=== PATIENT | female | born 1950 | race Caucasian/White ===

== ENCOUNTER 2018-04-26 13:22 | Outpatient (CLI) | payer MEDICARE, OTHER | END 2018-04-26 13:23 | disposition home or self-care (01) | LOC: SC 13:22 | PROVIDERS: ATTEND Nurse Practitioner Family | DX: G47.33 Obstructive sleep apnea (adult) (pediatric) (principal) | CPT/HCPCS: 99215; G0463; 99212 ==

== ENCOUNTER 2018-05-31 13:53 | Outpatient (CLI) | payer MEDICARE, OTHER | END 2018-05-31 13:54 | disposition home or self-care (01) | LOC: SC 13:53 | PROVIDERS: ATTEND Nurse Practitioner Family | DX: G47.33 Obstructive sleep apnea (adult) (pediatric) (principal) | CPT/HCPCS: 99214; G0463; 99212 ==

== ENCOUNTER 2022-05-14 14:25 | Outpatient (CLI) | payer MEDICARE, OTHER ==
--- NOTE | 2022-05-14 16:50 | XRAY Report ---
PROCEDURE: Knee 3 View BILAT INDICATIONS: KNEE XRAY TECHNIQUE: 3 views of the both knee(s) were acquired. COMPARISON: None. FINDINGS: Bones: No fractures or dislocations. No suspicious bony lesions. There is moderate to severe osteoarthritic type degenerative change involving both knees with the med ial and patellofemoral compartments most severely affected. Soft tissues: There are small to moderate-sized bilateral knee joint effusions. No suspicious soft t issue calcifications. IMPRESSION: 1. Moderate to severe tricompartmental osteoarthritic type degenerative change involving both knees w ith the medial and patellofemoral joints most severely affected. 2. No evidence for acute osseous abnormality. 3. Small moderate-sized bilateral knee joint effusions. Reviewed by: Sukhdev Oliver MD on 05/14/2022 4:48 PM PST Approved by: Sukhdev Oliver MD on 05/14/2022 4:48 PM PST Station ID: [id number]
== END 2022-05-14 14:26 | disposition home or self-care (01) ==
LOC: DI 14:25
PROVIDERS: ATTEND Internal Medicine
DX: M17.0 Bilateral primary osteoarthritis of knee (principal); M25.462 Effusion, left knee; M25.461 Effusion, right knee

== ENCOUNTER 2022-06-21 10:59 | Outpatient (CLI) | payer MEDICARE, OTHER | END 2022-06-21 11:00 | disposition critical access hospital (66) | LOC: EMS 10:59 | DX: R41.0 Disorientation, unspecified (principal); R32 Unspecified urinary incontinence | CPT/HCPCS: A0425; A0429 ==

== ENCOUNTER 2022-06-21 11:54 | Emergency (ER) | payer MEDICARE, OTHER ==
--- NOTE | 2022-06-21 12:31 | ED Physician Documentation ---
History of Present Illness - Stated complaint Stated Complaint: AMS - Chief complaint Chief Complaint: Neuro - History obtained from History obtained from: Patient, Family - History of Present Illness Timing: Today - Additonal information Additional information: Anjel Lemons is a 72-year-old female who has had some difficulty with sleeping for quite a while and she has recently had an increase in her Ambien. They have doubled the dose. She has been getting up in the middle of the night and does not recall this and she has had a fall out of bed as well as some odd behavior. She is brought into the emergency department today for evaluation as she appeared to be awake and dreaming today. Review of Systems Constitutional: denies: Fever, Chills, Myalgias, Fatigue Eyes: denies: Decreased vision Ears: denies: Ear pain Nose: denies: Congestion Throat: denies: Sore throat Cardiac: denies: Chest pain / pressure Respiratory: denies: Dyspnea, Cough GI: denies: Abdominal Pain, Nausea, Vomiting, Constipation, Diarrhea : denies: Dysuria, Frequency Skin: denies: Rash Musculoskeletal: denies: Neck pain, Back pain, Extremity pain Neurologic: reports: Altered mental status. denies: Generalized weakness, Focal weakness, Numbness Psychiatric: reports: Insomnia PD PAST MEDICAL HISTORY - Allergies Allergies/Adverse Reactions: Allergies Allergy/AdvReac Type Severity Reaction Status Date / Time Unable to Assess Allergy Verified 06/21/22 12:01 PD ED PE NORMAL - Vitals Vital signs reviewed: Yes (hypertensive ) - General General: Alert and oriented X 3, No acute distress, Well developed/nourished, Other (appears to answer questions with memory of recent events (remembers changing dose of ambien 2 weeks ago). ) - HEENT HEENT: Atraumatic, PERRL, EOMI - Neck Neck: Supple, no meningeal sign, No bony TTP - Cardiac Cardiac: RRR, Other (2/6 holosystolic murmer at LSB) - Respiratory Respiratory: No respiratory distress, Clear bilaterally Results - Vitals Vitals: Vital Signs - 24 hr 06/21/22 06/21/22 06/21/22 12:01 12:14 12:44 Temperature 37.6 C 37.6 C Heart Rate 92 92 81 Respiratory 20 20 18 Rate Blood Pressure 186/101 H 186/101 H 160/100 H O2 Saturation 92 92 96 Oxygen O2 Source Room air Procedures - IVC sono (time) 1225 Bedside IVC sono: IVC measures (cm) (1.56), Euvolemia PD Medical Decision Making - ED course Complexity details: reviewed old records, reviewed results, re-evaluated patient, considered differential, d/w patient, d/w family Social Determinants of Health: 72-year-old Anjel Booth with a failing memory and insomnia has had an increase in her dose of Ambien and she has had failed memory. She is in the care of her who presents to the emergency department and is able to provide additional history. I found the 's history to support with the patient gave his history as well and I feel that her acute memory problems are more likely related to her use of Ambien than overall. She was able to recall that she increased her dose 2 weeks ago and that she had no memory of things were happening in the night. ED course: 72-year-old female presents to the emergency department with behavior related to taking an increased dose of her sleep medication known to cause these behavioral disturbances. The patient is currently compos mentis and without symptoms consistent with resolution of the medication side effects. I did not find a reason to hold the patient further we did attempt to draw blood and were unable to get blood we did look at the patient's inferior vena cava with POCUS and she appeared to be adequately hydrated.She does have overactive bladder and the urine specimen was obtained. Departure - Departure Disposition: 01 Home, Self Care Clinical Impression: Ambien use disorder, mild Condition: Stable Instructions: Zolpidem tablets Follow-Up: Cuong Burton MD [Provider Admit Priv/Credential] - Comments: Anjel, today it looks like the increased dose of Ambien you are taking is not working for you. You are having nighttime awakening with bizarre behavior and memory lapse. This is a reason to reduce your dose or discontinue the medication. Follow-up with your primary care doctor.
[2022-06-21 12:52] VITALS: BP 160/100
[2022-06-21 13:27] LABS: BILIRUBIN,URINE NEGATIVE (NEGATIVE); CLARITY,URINE SL. CLOUDY (CLEAR); GLUCOSE, URINE (UA) NEGATIVE (NEGATIVE); KETONES,URINE (UA) NEGATIVE (NEGATIVE); LEUKOCYTE ESTERASE, URINE NEGATIVE (NEGATIVE); NITRITE,URINE POSITIVE (NEGATIVE); OCCULT BLOOD,URINE NEGATIVE (NEGATIVE); PROTEIN,URINE NEGATIVE (NEGATIVE); UROBILINOGEN,URINE 0.2 (NORMAL) E.U./dL (NORMAL)
[2022-06-21 13:36] LABS: RBC,URINE None Seen /HPF (0-5); SQUAMOUS EPITHELIAL CELL,UR RARE Squamous (<= Few)
[2022-06-21 13:37] LABS: BACTERIA,URINE Moderate /HPF (None Seen)
== END 2022-06-21 13:25 | disposition home or self-care (01) ==
LOC: ED 11:54
DX: F13.10 Sedative, hypnotic or anxiolytic abuse, uncomplicated (principal)
CPT/HCPCS: 36415; 80053; 81001; 81003; 83690; 85025; 87086; 87181; 99283; 99284

== ENCOUNTER 2022-10-21 13:02 | Outpatient (CLI) | payer MEDICARE, OTHER ==
[2022-10-21 13:57] VITALS: BP 126/72
--- NOTE | 2022-10-21 13:57 | SLEEP CARE CONSULTATION ---
Information from patient questionnaire entered by Yoshi Estrella. I have reviewed and concur with the information entered by Yoshi Estrella. This document represents the service I personally performed and the decisions made by me, Mickie Elmore ARNP. History of Present Illness Service Date and Time: 10/21/2022 1302 Reason for Visit: New patient, Previously diagnosed sleep apnea, Re-establish care Accompanied by: Spouse Chief Complaint: reports: Excessive daytime sleepiness, Fatigue, Frequent awakenings at night, Other (UPDATE SUPPLIES) Date of Onset: 10+YRS Usual bedtime: 10-11PM Time it takes to fall asleep: DEPENDS Snores at night: Yes Observed to quit breathing while asleep: Yes Number of times waking at night: MANY Reasons for waking at night: reports: Choking, Snoring, Gasping for air Toss, Turn, or Twitch while sleeping: Yes Recalls having dreams: Yes Usually gets out of bed at: 10AM Feels refreshed in the morning: No Morning headache: No Sleepy or fatigued during the day: Yes Ever fallen asleep while driving: No Takes day naps: Yes (daily for about 2-3 hours) Dreams during day naps: Yes Prior sleep studies: Yes Year and Where: [facility] 2012 Type of Sleep Study: Polysomnography Additional HPI information: LATISHA LACY was previously diagnosed to have severe, AHI 57.7, obstructive sleep apnea-hypopnea syndrome that was diagnosed in 2013 here at [facility] and comes in today with spouse to re-establish care. Her CPAP has been broken for many years and she has not been able to use it. - Parasomnia Symptoms Ever been unable to move upon waking from sleep: Yes (just a couple times ) Walks in sleep: Yes (sometimes, gets up and eats, no memory) Talks in sleep: Yes Ever acted out dreams in sleep: Yes Ever felt weak in the knees when startled or emotional: Yes Bothered by creepy, crawly, restless sensations in legs: Yes (normally when laying down) Problems with memory or concentration: Yes (both) Subjective Initial [place] Sleepiness Scale score: 5 (10/21/22) Past Medical History Past Medical History: reports: Arthritis, Arrythmia, Fibromyalgia, Anxiety, Depression, GERD Social History The patient's occupation is a RETIRED. Patient is and lives in [place]. Have you smoked in the past 12 months: No Quit date: 1996 Alcohol use: No Caffeine use: Yes Caffeine amount and frequency: 1 CUP COFFEE IN THE MORNING Family History Family history of sleep disordered breathing: No Allergies and Home Medications Known drug allergies: Yes (BENADRYL) Drug allergies reviewed: Yes Home medication list reviewed: Yes Review of Systems Weight gain over past 5 years: 70 Weight loss over past 5 years: 50, down now Cardiovascular: denies: high blood pressure Respiratory: reports: chronic cough Gastrointestinal: reports: diarrhea Urinary: reports: incontinence Neurological: denies: headaches Psychiatric: reports: depression Ear/Nose/Throat: reports: hoarseness Musculoskeletal: reports: joint pain, mobility problems Physical Exam Vital signs obtained and entered by: YOSHI Waldron MA Blood Pressure: 126/72 (LEFT ARM) Cuff size: regular Heart Rate: 75 O2 Saturation: 98 Height: 5 ft 5 in Weight: 208 lb 9.6 oz Body Mass Index: 34.7 BMI Classification: Obese Neck circumference: 16.5 Heart: regular rate and rhythm, murmur Lungs: clear bilaterally Impression and Plan 1. Obstructive Sleep Apnea-Hypopnea Syndrome, severe, as previously diagnosed and suggested by a continued history of loud and irregular snoring, observed cessation of breath while asleep, gasping or choking in sleep, frequent awakening during the night, unrefreshed sleep, cognitive impairment, and excessive daytime sleepiness. I recommend proceeding to polysomnography to confirm the diagnosis and to assess severity. I obtained agreement to proceed. The pathophysiology of obstructive sleep apnea-hypopnea syndrome was discussed with the patient and health risks of cardiovascular and cerebrovascular disease if not treated. Patient agreed to plan. 2. Obesity, unspecified. Currently patients BMI is 34.7. Obesity increases the risk of apnea, CPAP pressure requirements and overall health risks especially cardiovascular and diabetes. Thus patient is advised to lose weight. * Schedule polysomnography +- manual CPAP titration study and return in 1-2 weeks after the study to discuss result and initiate therapy. * Avoid long distance driving or driving when feeling sleepy. * Avoid alcohol, sedative and muscle relaxant around bedtime. * Attempt to lose weight. * Review instructions provided by trained office staff on how to prepare for the sleep study. * Return for follow-up after sleep study completed. Counseling Topics: Weight loss health impact Visit Type: In Office Time Spent with Patient (minutes): 33 Provider Statement: I spent 100% of the Face to Face Visit with the patient with greater than 50% spent counseling the patient and coordination of care.
== END 2022-10-21 13:03 | disposition home or self-care (01) ==
LOC: SC 13:02
PROVIDERS: ATTEND Nurse Practitioner Family
DX: G47.33 Obstructive sleep apnea (adult) (pediatric) (principal); E66.9 Obesity, unspecified; Z68.34 Body mass index [BMI] 34.0-34.9, adult
CPT/HCPCS: 99203; G0463; 99212

== ENCOUNTER 2022-11-06 11:08 | Outpatient (CLI) | payer MEDICARE, OTHER ==
--- NOTE | 2022-11-09 09:15 | Mammography Report ---
BILATERAL DIGITAL SCREENING MAMMOGRAM 3D/2D: 11/06/2022 CLINICAL: Routine screening. Comparison is made to exams dated: 04/02/2020 mammogram, 03/30/2019 mammogram, 09/22/2018 mammogram, 04/2018 mammogram, 12/25/2016 mammogram, and 11/22/2015 mammogram - [facility]. Both breasts are almost entirely fatty (category a/<25% glandular tissue). No significant masses, calcifications, or other findings are seen in either breast. There has been no significant interval change. IMPRESSION: NEGATIVE There is no mammographic evidence of malignancy. A 1 year screening mammogram is recommended. Based on the Tyrer Cuzick model (a risk assessment model) the patients lifetime risk is 3.4% and her 10 year risk is 2.5%. According to the ACR, ACS, and NCCN guidelines, an annual breast MRI exam johnson g with mammogram is recommended if the patients lifetime risk is 20% or greater. This exam was interpreted at Station ID: [id number]. NOTE: For mammograms, a report in lay terms will be sent to the patient. Approximately 15% of breast malignancies will not be visualized mammographically. In the management of a palpable breast mass, a negative mammogram must not discourage biopsy of a clinically suspicious lesion. Electronically Signed By: Cesar velasquez/esther:11/06/2022 12:27:02 letter sent: No_Letter ACR BI-RADS Category 1: Negative 3341F PARENCHYMAL PATTERN: (F) - The breast(s) demonstrate(s) diffuse fatty replacement. BI-RADS CATEGORY: (1) - 1 Mammogram [id number] 1 year screening LATERALITY: (B)
== END 2022-11-06 11:09 | disposition home or self-care (01) ==
LOC: DI 11:08
PROVIDERS: ATTEND Internal Medicine
DX: Z12.31 Encounter for screening mammogram for malignant neoplasm of breast (principal)

== ENCOUNTER 2022-11-06 11:08 | Outpatient (CLI) | payer MEDICARE, OTHER ==
--- NOTE | 2022-11-06 17:00 | DEXA Report ---
PROCEDURE: Dexa Spine and/or Hip INDICATIONS: POST MENOPAUSAL TECHNIQUE: Dual energy x-ray absorptiometry (DXA) was performed on a [employer] System. Regions measur ed are the AP Spine, femoral neck, and if needed forearm. COMPARISON: None. FINDINGS: Left forearm: Bone Mineral Density 0.46 g/cm/cm, T score -3.3, osteoporosis Impression: Osteoporosis of left forearm Patients with diagnosis of osteoporosis or osteopenia should have regular bone mineral density assess ment. For those eligible for Medicare, routine testing is allowed once every 2 years. Testing frequ ency can be increased for patients who have rapidly progressing disease or for those who are receivin g medical therapy to restore bone mass. Reviewed by: Lg Rodriguez MD on 11/06/2022 4:59 PM PDT Approved by: Lg Rodriguez MD on 11/06/2022 4:59 PM PDT Station ID: [id number]
== END 2022-11-06 11:09 | disposition home or self-care (01) ==
LOC: DI 11:08
PROVIDERS: ATTEND Internal Medicine
DX: M81.0 Age-related osteoporosis without current pathological fracture (principal)

== ENCOUNTER 2022-12-11 14:31 | Outpatient (CLI) | payer MEDICARE, OTHER | END 2022-12-11 14:32 | disposition home or self-care (01) | LOC: SC 14:31 | PROVIDERS: ATTEND Nurse Practitioner Family | DX: G47.33 Obstructive sleep apnea (adult) (pediatric) (principal); R09.02 Hypoxemia | CPT/HCPCS: G0399 ×2; 95806 ==

== ENCOUNTER 2022-12-30 15:42 | Outpatient (CLI) | payer MEDICARE, OTHER ==
--- NOTE | 2022-12-30 16:16 | SLEEP CARE CONSULTATION ---
Information from patient questionnaire entered by Carolina Estrella. I have reviewed and concur with the information entered by Carolina Estrella. This document represents the service I personally performed and the decisions made by , Mickie Elmore ARNP. History of Present Illness Service Date and Time: 12/30/2022 1542 Accompanied by: Spouse Initial [place] Sleepiness Scale score: 5 Current [place] Sleepiness Scale score: 13 (12/30/22) Additional HPI information: LATISHA LACY returns with spouse for follow up and results of the recently performed home sleep study. Patient's sleep study showed moderate obstructive sleep apnea with an average AHI of 21.5 and pj oxygen saturation of 80%. I explained the pathophysiology behind obstructive sleep apnea. We then spent quite a bit of time discussing different treatment options. For mild obstructive sleep apnea, surgery and oral appliance are alternatives to nasal CPAP therapy but in moderate or severe cases, nasal CPAP is the most effective and reliable treatment. I reviewed the impact of weight changes on sleep apnea and strongly recommended losing weight. After some discussion, the patient opted to re-start using the nasal CPAP therapy. Nasal autoCPAP set at 8-12 cmH20 will be ordered with rationale explained. A manual titration study will be ordered if unable to find optimal pressure with office adjustments. The patient was instructed to call the CPAP supplier to discuss any mechanical problem that may occur. If the mask given is uncomfortable or is difficult to keep on through the night even with adjustment, contact the CPAP supplier as many will replace with another mask style if notified before 30 days. If snoring or perceives is not getting enough air or too much air from the machine, notify this office. Patient counseled not drink alcohol less than 4 hours before bedtime as it can increase snoring and apnea. Patient denies does not drive. Sleep Study - Results Type of Sleep Study: Home sleep study (COMPLETED 12/13/22) Prior sleep studies: Yes Year and Where: [facility] 2012 Polysomnography/Home Sleep Study results: Physician Impression: The quality of the study is good. The length of the study is adequate (> 240 minutes). Please also see the tabulated and graphic data. 1. Obstructive Sleep Apnea-Hypopnea (ICD-10 G47.33), moderate, with an AHI of 21.5/hr and pj SaO2 of 80%. During the study, the patient had 60 apneas (59 obstructive, 0 central, 1 mixed) and 126 hypopneas. The longest episode lasted 81.0 seconds. The respiratory events occurred independently of sleep stage and body position (supine AHI was 22.3 and non-supine, 18.80). 2. Hypoxemia (ICD-10 R09.02), mild, with the lowest oxygen saturation of 80 % and 383.3 minutes with SaO2 under 90%. Baseline oxygen saturation was low (Average oxygen saturation was 89%). Allergies and Home Medications Known drug allergies: Yes (diphenhydramine) Drug allergies reviewed: Yes Home medication list reviewed: Yes (no changes) Allergy and home medication list: Allergies diphenhydramine [From Benadryl] Allergy (Verified 12/29/22 15:14) Review of Systems Review of systems same as previous: Yes (no changes) Physical Exam Vital signs obtained and entered by: CAROLINA Waldron MA Blood Pressure: 128/76 (LEFT ARM) Cuff size: regular Heart Rate: 70 O2 Saturation: 95 Height: 5 ft 5 in Weight: 202 lb Body Mass Index: 33.6 BMI Classification: Obese Impression and Plan 1. Obstructive Sleep Apnea-Hypopnea Syndrome, moderate, with lowest oxygen saturation of 80%. Obviously this is the cause of the patients symptoms of unrefreshed sleep, and excessive daytime sleepiness. Positive pressure therapy could benefit arrhythmia, fibromyalgia, anxiety, depression and gastric reflux. Patient was previously using a CPAP with her pressure set at 10 cm H2O. She did not have a follow-up back in 2018 so I am not sure how efficient that setting is for her. The patient will be re-started on nasal autoCPAP therapy with pressure set at 8-12 cmH2O. A manual titration study will be completed if unable to find optimal treatment pressure with office adjustments. Compliance guidelines also reviewed. A copy of compliance guidelines will be given for reference at check out. 2. Hypoxemia, mild, with a pj oxygen saturation of 80% and 383.3 minutes spent under 90%. Her baseline oxygen saturation was low normal with an average oxygen saturation of 89%. Patient states she has an oxygen concentrator at home and uses 3 L NC during the night. * Nasal auto CPAP therapy, pressure at 8-12 cm H2O. * Oxygen adaptor for oxygen thru CPAP ordered * Attempt to lose weight. * Avoid alcohol consumption near bedtime. * Avoid supine sleep until using CPAP. * The patient does not drive * Return one month after CPAP obtained. I will assess response to therapy and compliance at that time. Counseling Topics: Weight loss health impact Visit Type: In Office Other Participants: Spouse/Significant Other Time Spent with Patient (minutes): 24 Provider Statement: I spent 100% of the Face to Face Visit with the patient with greater than 50% spent counseling the patient and coordination of care.
[2022-12-30 16:19] VITALS: BP 128/76
== END 2022-12-30 15:43 | disposition home or self-care (01) ==
LOC: SC 15:42
PROVIDERS: ATTEND Nurse Practitioner Family
DX: G47.33 Obstructive sleep apnea (adult) (pediatric) (principal)
CPT/HCPCS: 99213; G0463; 99212

== ENCOUNTER 2023-02-11 11:29 | Outpatient (CLI) | payer MEDICARE, OTHER ==
--- NOTE | 2023-02-11 13:07 | CT Report ---
PROCEDURE: HEAD WO INDICATIONS: DEMENTIA TECHNIQUE: Noncontrast 4.5 mm thick angled axial sections acquired from the foramen magnum to the vertex. For r adiation dose reduction, the following was used: automated exposure control, adjustment of mA and/or kV according to patient size. COMPARISON: None. FINDINGS: Image quality: Excellent. CSF spaces: Basal cisterns are patent. No extra-axial fluid collections. Ventricles are normal in size and shape. Brain: No midline shift. No intracranial masses or hemorrhage. Ornelas-white matter interface is norm al. Skull and face: Calvarium and visualized facial bones are intact, without suspicious lesions. Sinuses: Visualized sinuses and mastoids are clear. IMPRESSION: Noncontrast head CT within normal limits for age. Reviewed by: Maikol Padilla MD on 02/11/2023 12:05 PM SHARRI Approved by: Maikol Padilla MD on 02/11/2023 12:05 PM SHARRI Station ID: [id number]
== END 2023-02-11 11:30 | disposition home or self-care (01) ==
LOC: DI 11:29
PROVIDERS: ATTEND Internal Medicine
DX: F03.90 Unspecified dementia, unspecified severity, without behavioral disturbance, psychotic disturbance, mood disturbance, and anxiety (principal)

== ENCOUNTER 2023-04-16 12:49 | Outpatient (CLI) | payer MEDICARE, OTHER ==
--- NOTE | 2023-04-16 15:11 | MRI Report ---
PROCEDURE: MRI brain without contrast INDICATIONS: CT brain 02/11/2023 TECHNIQUE: Multiplanar multisequential MR images of the brain were obtained without contrast COMPARISON: None FINDINGS: CSF Spaces: Basal cisterns are patent. No extra-axial fluid collections. Ventricles are normal in size and shape. Brain: No intracranial masses or hemorrhage. Ornelas/white matter interface is normal. Brainstem appe ars normal. Diffusion-weighted images shows no evidence of acute infarct. Normal intravascular flow voids are present. Moderate cerebral and cerebellar atrophy with mild multifocal white matter chronic ischemic change no to. Skull and face: Calvarium has normal marrow signal. Orbits appear normal. Sinuses: Sinuses and mastoids are clear. IMPRESSION: Atrophy and chronic ischemic change without acute infarct, hemorrhage or mass lesion Reviewed by: Armand Hogan MD on 04/16/2023 2:10 PM AKDT Approved by: Armand Hogan MD on 04/16/2023 2:10 PM AKDT Station ID: [id number]
== END 2023-04-16 12:50 | disposition home or self-care (01) ==
LOC: DI 12:49
PROVIDERS: ATTEND Registered Nurse
DX: R41.89 Other symptoms and signs involving cognitive functions and awareness (principal); I67.82 Cerebral ischemia; G31.9 Degenerative disease of nervous system, unspecified